=== PATIENT | female | born 2000 | race Caucasian/White ===

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

== ENCOUNTER 2018-03-13 14:45 | Emergency (ER) | payer MEDICAID ==
[~2018-03-13] VITALS: Ht 160 cm; Wt 72.4 kg
[~2018-03-13 14:45] MED LIST: FLAGYL500 MG PO; PHENERGAN25 M1 PO; VIBRAMYCIN 100100 MG PO
[2018-03-13 14:51] VITALS: Ht 160 cm; Wt 72.4 kg
[2018-03-13 15:26] LABS: BASOPHILS 0.1 % (0-2); EOSINOPHILS 0.7 % (0-7); HEMATOCRIT 40.6 % (36.0-48.0); HEMOGLOBIN 13.6 g/dL (12-16); IMMATURE GRANULOCYTES 0.1 % (0-5); LYMPHOCYTES 21.3 % (15-50); MCHC 33.5 g/dL (31.0-37.0); MCV 86.6 fL (80.0-100.0); MEAN PLATELET VOLUME 11.4 fL (7.4-10.4); MONOCYTES 7.9 % (2-11); NEUTROPHILS 69.9 % (40-80); PLATELET COUNT 174 10x3/uL (130-400); RBC 4.69 10x6/uL (4.00-5.40); RDW 13.5 % (11.5-14.5); WBC 9.7 10x3/uL (4.8-10.8)
[2018-03-13 15:45] LABS: APPEARANCE CLEAR (CLEAR); BILIRUBIN NEGATIVE (NEGATIVE); COLOR YELLOW (YELLOW); GLUCOSE NEGATIVE (NEGATIVE); KETONE NEGATIVE (NEGATIVE); NITRITE NEGATIVE (NEGATIVE); PROTEIN NEGATIVE (NEGATIVE); UROBILINOGEN NORMAL (NORMAL)
[2018-03-13 15:48] LABS: BACTERIA FEW /hpf (NONE SEEN); EPITHELIAL CELLS 0-5 /hpf (0-5); MUCUS <1+ /lpf (NONE SEEN); RED CELLS - URINE OCC /hpf (0-5); WHITE CELLS - URINE 0-5 /hpf (0-5)
[2018-03-13 15:51] LABS: ALBUMIN 3.7 g/dL (3.4-5.0); ALKALINE PHOSPHATASE 83 U/L (46-116); ALT (SGPT) 13 U/L (10-68); CALC OSMOLALITY 281 mosm/kg (275-300); CALCIUM 8.7 mg/dL (8.5-10.1); CARBON DIOXIDE 23.4 mmol/L (21.0-32.0); CHLORIDE - SERUM 107 mmol/L (98-107); CREATININE - SERUM 0.8 mg/dL (0.6-1.3); GLUCOSE 96 mg/dL (74-106); POTASSIUM - SERUM 3.3 mmol/L (3.5-5.1); PROTEIN - SERUM 7.3 g/dL (6.4-8.2); SODIUM 142 mmol/L (136-145); UREA NITROGEN 10 mg/dL (7-18); eGFR NON AFRICAN AMERICAN > 90 mL/min (90-120)
[2018-03-13 15:55] LABS: HCG SERUM POSITIVE (NEGATIVE)
[2018-03-13 20:11] VITALS: BP 122/78
== END 2018-03-13 20:05 | disposition home or self-care (01) ==
LOC: D.ER 14:45
PROVIDERS: Family Medicine
DX: O26.891 Other specified pregnancy related conditions, first trimester (principal); Z3A.01 Less than 8 weeks gestation of pregnancy; M25.551 Pain in right hip

== ENCOUNTER 2018-03-26 14:03 | Emergency (ER) | payer MEDICAID ==
[~2018-03-26] VITALS: Ht 160 cm; Wt 70.0 kg
[2018-03-26 15:00] VITALS: Ht 160 cm; Wt 70.0 kg
[2018-03-26 15:38] LABS: BASOPHILS 0.2 % (0-2); EOSINOPHILS 0.2 % (0-7); HEMATOCRIT 38.8 % (36.0-48.0); HEMOGLOBIN 13.4 g/dL (12-16); IMMATURE GRANULOCYTES 0.1 % (0-5); LYMPHOCYTES 19.5 % (15-50); MCH 29.1 pg (26.0-34.0); MCHC 34.5 g/dL (31.0-37.0); MCV 84.2 fL (80.0-100.0); MONOCYTES 5.2 % (2-11); NEUTROPHILS 74.8 % (40-80); PLATELET COUNT 189 10x3/uL (130-400); RBC 4.61 10x6/uL (4.00-5.40); RDW 13.3 % (11.5-14.5); WBC 8.2 10x3/uL (4.8-10.8)
[2018-03-26 15:58] LABS: ALBUMIN 3.9 g/dL (3.4-5.0); ALKALINE PHOSPHATASE 73 U/L (46-116); ALT (SGPT) 16 U/L (10-68); BILIRUBIN - TOTAL 0.67 mg/dL (0.2-1.3); CALC OSMOLALITY 280 mosm/kg (275-300); CALCIUM 8.9 mg/dL (8.5-10.1); CARBON DIOXIDE 25.7 mmol/L (21.0-32.0); CHLORIDE - SERUM 106 mmol/L (98-107); CREATININE - SERUM 0.8 mg/dL (0.6-1.3); GLUCOSE 87 mg/dL (74-106); POTASSIUM - SERUM 3.5 mmol/L (3.5-5.1); PROTEIN - SERUM 7.3 g/dL (6.4-8.2); SODIUM 142 mmol/L (136-145); UREA NITROGEN 10 mg/dL (7-18); eGFR NON AFRICAN AMERICAN > 90 mL/min (90-120)
[2018-03-26 16:14] LABS: APPEARANCE CLEAR (CLEAR); COLOR YELLOW (YELLOW)
[2018-03-26 16:15] LABS: BILIRUBIN NEGATIVE (NEGATIVE); GLUCOSE NEGATIVE (NEGATIVE); KETONE MODERATE mg/dL (NEGATIVE); NITRITE NEGATIVE (NEGATIVE); PROTEIN NEGATIVE (NEGATIVE); UROBILINOGEN NORMAL (NORMAL)
[2018-03-26 16:17] LABS: UDS - AMPHET NEGATIVE QUAL (NEGATIVE); UDS - BARB NEGATIVE QUAL (NEGATIVE); UDS - BENZO NEGATIVE QUAL (NEGATIVE); UDS - COCAINE NEGATIVE QUAL (NEGATIVE); UDS - OPIATE NEGATIVE QUAL (NEGATIVE); UDS - PCP NEGATIVE QUAL (NEGATIVE); UDS - THC POSITIVE QUAL (NEGATIVE)
[2018-03-26 16:19] LABS: HCG - QUANTITATIVE (MATERNAL) 77492 mIU/mL
[2018-03-26] MEDS ORDERED: ZOFRAN4 MG PO (19:43)
[2018-03-26 20:28] VITALS: BP 118/76
== END 2018-03-26 20:28 | disposition home or self-care (01) ==
LOC: D.ER 14:03 → D.EDHOLD 19:00 → D.ER 19:00
PROVIDERS: Family Medicine
DX: O21.9 Vomiting of pregnancy, unspecified (principal); Z3A.01 Less than 8 weeks gestation of pregnancy; E86.9 Volume depletion, unspecified

== ENCOUNTER 2018-08-01 19:08 | Outpatient (CLI) | payer MEDICAID ==
[2018-03-26 15:00] VITALS: BMI 27.3
[~2018-08-01 19:08] MED LIST changes: +ZOFRAN4 MG PO
== END 2018-08-01 22:18 | disposition home or self-care (01) ==
LOC: D.LDO 19:08
PROVIDERS: ATTEND Obstetrics & Gynecology
DX: O26.899 Other specified pregnancy related conditions, unspecified trimester (principal); Z3A.00 Weeks of gestation of pregnancy not specified

== ENCOUNTER → 2018-08-04 13:05 | Outpatient (CLI) | payer MEDICAID ==
[2018-03-26 15:00] VITALS: BMI 27.3
[~2018-08-04 13:05] MED LIST changes: +ALBUTEROL SULF8.5 GM INH; +BAYER CHEWABLE81 MG PO; +CYCLOBENZAPRINE10 MG PO; +PENICILLIN V P500 MG PO
[2018-08-04 14:06] LABS: APPEARANCE CLEAR (CLEAR); BILIRUBIN NEGATIVE (NEGATIVE); COLOR YELLOW (YELLOW); GLUCOSE NEGATIVE (NEGATIVE); KETONE NEGATIVE (NEGATIVE); NITRITE NEGATIVE (NEGATIVE); PROTEIN NEGATIVE (NEGATIVE); SPECIFIC GRAVITY 1.005 (1.005-1.020); UROBILINOGEN NORMAL (NORMAL)
[2018-08-04 14:08] LABS: UDS - AMPHET NEGATIVE QUAL (NEGATIVE); UDS - BARB NEGATIVE QUAL (NEGATIVE); UDS - BENZO NEGATIVE QUAL (NEGATIVE); UDS - COCAINE NEGATIVE QUAL (NEGATIVE); UDS - OPIATE NEGATIVE QUAL (NEGATIVE); UDS - PCP NEGATIVE QUAL (NEGATIVE); UDS - THC POSITIVE QUAL (NEGATIVE)
[2018-11-18 13:21] VITALS: BMI 26.6
== END | disposition home or self-care (01) ==
LOC: D.LDO 13:05
PROVIDERS: ATTEND Obstetrics & Gynecology
DX: O26.892 Other specified pregnancy related conditions, second trimester (principal); Z3A.25 25 weeks gestation of pregnancy

== ENCOUNTER 2018-08-26 23:04 | Outpatient (CLI) | payer SELFPAY ==
[2018-03-26 15:00] VITALS: BMI 27.3
[~2018-08-26 23:04] MED LIST changes: -ALBUTEROL SULF8.5 GM INH; -BAYER CHEWABLE81 MG PO; -CYCLOBENZAPRINE10 MG PO; -PENICILLIN V P500 MG PO
[2018-08-26 23:35] LABS: APPEARANCE CLEAR (CLEAR); BILIRUBIN NEGATIVE (NEGATIVE); COLOR YELLOW (YELLOW); GLUCOSE NEGATIVE (NEGATIVE); KETONE NEGATIVE (NEGATIVE); NITRITE NEGATIVE (NEGATIVE); PROTEIN NEGATIVE (NEGATIVE); UROBILINOGEN NORMAL (NORMAL)
== END 2018-08-27 01:15 ==
LOC: D.LDO 23:04 → D.LD 23:30 → D.LDO 08-27 00:04
PROVIDERS: ATTEND Obstetrics & Gynecology
DX: O26.899 Other specified pregnancy related conditions, unspecified trimester (principal); Z3A.00 Weeks of gestation of pregnancy not specified

== ENCOUNTER 2018-09-03 22:48 | Emergency (ER) | payer SELFPAY ==
[~2018-09-03] VITALS: Ht 160 cm; Wt 75.5 kg
[2018-09-03 23:04] VITALS: Ht 160 cm; Wt 75.5 kg
[2018-09-03] MEDS ORDERED: BAYER CHEWABLE81 MG PO (23:07)
[2018-09-04 00:57] VITALS: BP 113/66
== END 2018-09-04 00:57 | disposition home or self-care (01) ==
LOC: D.ER 22:48
DX: J02.0 Streptococcal pharyngitis (principal)

== ENCOUNTER 2018-09-24 21:08 | Outpatient (CLI) | payer MEDICAID ==
[2018-09-03 23:04] VITALS: BMI 29.5
[~2018-09-24 21:08] MED LIST changes: +BAYER CHEWABLE81 MG PO
[2018-11-18 13:21] VITALS: BMI 26.6
== END 2018-09-25 01:25 | disposition home or self-care (01) ==
LOC: D.LDO 21:08 → D.LD 23:08 → D.LDO 09-25 01:25
PROVIDERS: ATTEND Obstetrics & Gynecology
DX: O26.899 Other specified pregnancy related conditions, unspecified trimester (principal); Z3A.00 Weeks of gestation of pregnancy not specified

== ENCOUNTER → 2018-09-25 13:49 | Outpatient (CLI) | payer MEDICAID ==
[2018-09-03 23:04] VITALS: BMI 29.5
[~2018-09-25 13:49] MED LIST changes: +ALBUTEROL SULF8.5 GM INH; +CYCLOBENZAPRINE10 MG PO; +PENICILLIN V P500 MG PO
[2018-11-18 13:21] VITALS: BMI 26.6
== END | disposition home or self-care (01) ==
LOC: D.LDO 13:49
PROVIDERS: ATTEND Obstetrics & Gynecology
DX: O26.893 Other specified pregnancy related conditions, third trimester (principal); Z3A.32 32 weeks gestation of pregnancy

== ENCOUNTER → 2018-10-12 13:48 | Outpatient (CLI) | payer MEDICAID ==
[2018-09-03 23:04] VITALS: BMI 29.5
[~2018-10-12 13:48] MED LIST changes: -PENICILLIN V P500 MG PO
[2018-10-12 14:50] LABS: APPEARANCE CLEAR (CLEAR); BILIRUBIN NEGATIVE (NEGATIVE); COLOR YELLOW (YELLOW); GLUCOSE NEGATIVE (NEGATIVE); KETONE NEGATIVE (NEGATIVE); NITRITE NEGATIVE (NEGATIVE); PROTEIN NEGATIVE (NEGATIVE); SPECIFIC GRAVITY 1.015 (1.005-1.020); UROBILINOGEN NORMAL (NORMAL)
[2018-10-12 14:52] LABS: BACTERIA MANY /hpf (NONE SEEN); EPITHELIAL CELLS 0-5 /hpf (0-5); RED CELLS - URINE 0-5 /hpf (0-5); WHITE CELLS - URINE 0-5 /hpf (0-5)
[2018-11-08 18:31] VITALS: BMI 32.4
== END | disposition home or self-care (01) ==
LOC: D.LDO 13:48
PROVIDERS: ATTEND Obstetrics & Gynecology
DX: O26.893 Other specified pregnancy related conditions, third trimester (principal)

== ENCOUNTER 2018-10-21 12:11 | Outpatient (CLI) | payer MEDICAID ==
[2018-09-03 23:04] VITALS: BMI 29.5
[~2018-10-21 12:11] MED LIST changes: -ALBUTEROL SULF8.5 GM INH; -CYCLOBENZAPRINE10 MG PO
[2018-10-21] MEDS ORDERED: CYCLOBENZAPRINE10 MG PO (12:26)
[2018-10-21] MEDS ORDERED: ALBUTEROL SULF8.5 GM INH (12:27)
[2018-10-21 13:05] LABS: AMORPHOUS SEDIMENT <1+ /lpf (NONE SEEN); APPEARANCE CLEAR (CLEAR); BACTERIA MANY /hpf (NONE SEEN); BILIRUBIN NEGATIVE (NEGATIVE); COLOR YELLOW (YELLOW); GLUCOSE NEGATIVE (NEGATIVE); KETONE NEGATIVE (NEGATIVE); MUCUS >1+ /lpf (NONE SEEN); NITRITE NEGATIVE (NEGATIVE); PROTEIN 1+ mg/dL (NEGATIVE); RED CELLS - URINE 0-5 /hpf (0-5); SPECIFIC GRAVITY 1.015 (1.005-1.020); UROBILINOGEN NORMAL (NORMAL)
[2018-10-21 13:09] LABS: UDS - AMPHET NEGATIVE QUAL (NEGATIVE); UDS - BARB NEGATIVE QUAL (NEGATIVE); UDS - BENZO NEGATIVE QUAL (NEGATIVE); UDS - COCAINE NEGATIVE QUAL (NEGATIVE); UDS - OPIATE NEGATIVE QUAL (NEGATIVE); UDS - PCP NEGATIVE QUAL (NEGATIVE); UDS - THC POSITIVE QUAL (NEGATIVE)
[2018-10-25 12:09] LABS: UDSC - AMPHET Negative ng/mL (Cutoff=1000); UDSC - BARB Negative ng/mL (Cutoff=300); UDSC - BENZO Negative ng/mL (Cutoff=300); UDSC - COC Negative ng/mL (Cutoff=300); UDSC - METH Negative ng/mL (Cutoff=300); UDSC - OPIATES Negative ng/mL (Cutoff=300); UDSC - PCP Negative ng/mL (Cutoff=25); UDSC - PROPOXY Negative ng/mL (Cutoff=300); UDSC - THC QNS (())
[2018-11-08 18:31] VITALS: BMI 32.4
== END 2018-10-21 17:00 ==
LOC: D.LDO 12:11
PROVIDERS: ATTEND Obstetrics & Gynecology
DX: O47.9 False labor, unspecified (principal); Z3A.00 Weeks of gestation of pregnancy not specified

== ENCOUNTER 2018-11-06 22:19 | Outpatient (CLI) | payer MEDICAID ==
[2018-09-03 23:04] VITALS: BMI 29.5
[~2018-11-06 22:19] MED LIST changes: +ALBUTEROL SULF8.5 GM INH; +CYCLOBENZAPRINE10 MG PO
[2018-11-06 23:00] LABS: APPEARANCE CLEAR (CLEAR); BILIRUBIN NEGATIVE (NEGATIVE); COLOR YELLOW (YELLOW); GLUCOSE NEGATIVE (NEGATIVE); KETONE NEGATIVE (NEGATIVE); NITRITE NEGATIVE (NEGATIVE); PROTEIN NEGATIVE (NEGATIVE); SPECIFIC GRAVITY 1.015 (1.005-1.020); UROBILINOGEN NORMAL (NORMAL)
[2018-11-06 23:08] LABS: UDS - AMPHET NEGATIVE QUAL (NEGATIVE); UDS - BARB NEGATIVE QUAL (NEGATIVE); UDS - BENZO NEGATIVE QUAL (NEGATIVE); UDS - COCAINE NEGATIVE QUAL (NEGATIVE); UDS - OPIATE NEGATIVE QUAL (NEGATIVE); UDS - PCP NEGATIVE QUAL (NEGATIVE); UDS - THC POSITIVE QUAL (NEGATIVE)
[2018-11-08 18:31] VITALS: BMI 32.4
[2018-11-09 14:09] LABS: UDSC - AMPHET Negative ng/mL (Cutoff=1000); UDSC - BARB Negative ng/mL (Cutoff=300); UDSC - BENZO Negative ng/mL (Cutoff=300); UDSC - COC Negative ng/mL (Cutoff=300); UDSC - METH Negative ng/mL (Cutoff=300); UDSC - OPIATES Negative ng/mL (Cutoff=300); UDSC - PCP Negative ng/mL (Cutoff=25); UDSC - PROPOXY Negative ng/mL (Cutoff=300); UDSC - THC Positive (Cutoff=50)
== END 2018-11-07 00:33 | disposition home or self-care (01) ==
LOC: D.LDO 22:19 → D.LD 23:51 → D.LDO 11-07 00:33
PROVIDERS: ATTEND Obstetrics & Gynecology
DX: O36.8130 Decreased fetal movements, third trimester, not applicable or unspecified (principal); Z3A.38 38 weeks gestation of pregnancy

== ENCOUNTER 2018-11-08 14:30 | Inpatient (IN) | payer MEDICAID ==
[~2018-11-08] VITALS: Ht 160 cm; Wt 83.0 kg
[2018-11-08 16:33] LABS: APPEARANCE CLEAR (CLEAR); BILIRUBIN NEGATIVE (NEGATIVE); COLOR YELLOW (YELLOW); GLUCOSE NEGATIVE (NEGATIVE); KETONE NEGATIVE (NEGATIVE); NITRITE NEGATIVE (NEGATIVE); PROTEIN NEGATIVE (NEGATIVE); SPECIFIC GRAVITY 1.005 (1.005-1.020); UROBILINOGEN NORMAL (NORMAL)
[2018-11-08 18:31] VITALS: BP 118/74; Ht 160 cm; Wt 83.0 kg
[2018-11-08 20:21] LABS: HEMATOCRIT 39.6 % (36.0-48.0); HEMOGLOBIN 12.9 g/dL (12-16); MCH 27.3 pg (26.0-34.0); MCHC 32.6 g/dL (31.0-37.0); MCV 83.9 fL (80.0-100.0); MEAN PLATELET VOLUME 12.5 fL (7.4-10.4); RBC 4.72 10x6/uL (4.00-5.40); RDW 13.6 % (11.5-14.5); WBC 13.5 10x3/uL (4.8-10.8)
[2018-11-08 22:33] LABS: UDS - AMPHET NEGATIVE QUAL (NEGATIVE); UDS - BARB NEGATIVE QUAL (NEGATIVE); UDS - BENZO NEGATIVE QUAL (NEGATIVE); UDS - COCAINE NEGATIVE QUAL (NEGATIVE); UDS - OPIATE NEGATIVE QUAL (NEGATIVE); UDS - PCP NEGATIVE QUAL (NEGATIVE); UDS - THC POSITIVE QUAL (NEGATIVE)
[2018-11-09 01:37] VITALS: BP 115/66
--- NOTE | 2018-11-09 01:37 | NUR ---
AMBULATORY TO ROOM 1257 FOR CONTINUED PP CARE. STEADY GAIT NOTED. VSS. ORIENTED TO ROOM, CALL LIGHT USE, BATHROOM. DENIES NEEDS AT THIS TIME. BED IN LOW POSITION WITH UPPER SIDE RAILS RAISED X2. CALL LIGHT AND PHONE WITHIN REACH. WILL CONTINUE TO MONITOR. NBN NOTIFIED OF MOM MOVING TO NEW ROOM.
--- NOTE | 2018-11-09 03:23 | NUR ---
RN TO ROOM FOR ROUNDS. PT NOT IN ROOM. LEONARDA BARROS RN REPORTS THAT PT AND SIGNIFICANT OTHER WALKED PAST NBN WINDOW APPROXIMATELY 10-15 MINUTES AGO. INFANT IN NBN AT THIS TIME.
--- NOTE | 2018-11-09 03:35 | NUR ---
PT BACK IN ROOM, CALLS VIA CALL LIGHT. REQUESTS TO SHOWER, TOWELS AND CLEAN GOWN PROVIDED. REINFORCED WITH PT IMPORTANCE OF REMAINING ON UNIT WHEN AMBULATING D/T SAFETY FOR HER AND IN THE EVENT SHE NEEDED TO BE GOTTEN FOR INFANT NEEDS, VERBALIZES UNDERSTANDING. INSTRUCTED HUMAN SERVICES SUPERVISOR LIGHT USE IN BR, VERBALIZES UNDERSTANDING. ICE WATER PROVIDED. WILL CONTINUE TO MONITOR.
--- NOTE | 2018-11-09 04:03 | NUR ---
OUT OF SHOWER. WATCHING TV IN SEMI FOWLERS POSITION, CONVERSING WITH SIGNIFICANT OTHER, DENIES NEEDS AND PAIN. RESTING QUIETLY IN OPEN CRIB AT BEDSIDE. BED IN LOW POSITION WITH UPPER SIDE RIALS RAISED X2. CALL LIGHT AND PHONE WITHIN REACH.
[2018-11-09 07:21] LABS: BASOPHILS 0.1 % (0-2); EOSINOPHILS 0.1 % (0-7); HEMATOCRIT 38.5 % (36.0-48.0); HEMOGLOBIN 12.4 g/dL (12-16); IMMATURE GRANULOCYTES 0.3 % (0-5); LYMPHOCYTES 11.2 % (15-50); MCH 27.1 pg (26.0-34.0); MCHC 32.2 g/dL (31.0-37.0); MCV 84.2 fL (80.0-100.0); MEAN PLATELET VOLUME 12.4 fL (7.4-10.4); MONOCYTES 7.7 % (2-11); NEUTROPHILS 80.6 % (40-80); PLATELET COUNT 188 10x3/uL (130-400); RBC 4.57 10x6/uL (4.00-5.40); RDW 13.5 % (11.5-14.5)
[2018-11-09 07:25] LABS: WBC 17.4 10x3/uL (4.8-10.8)
[2018-11-09 07:39] VITALS: BP 126/74
--- NOTE | 2018-11-09 07:49 | NUR ---
RESTING IN BED HOLDING INFANT. ASSESSMENT DONE. STATES NEEDS TO GET UP TO VOID. CO PAIN LOWER ABD AND RECTAL AREA- STATES FEELS LIKE PRESSURE. FUNDUS UU/FIRM. SMALL LOCHIA NOTED ON PAD- NO CLOTS. UP TO BATHROOM TO VOID.
--- NOTE | 2018-11-09 08:02 | NUR ---
C/O ABD CRAMPING 07/23. MOTRIN GIVEN PER ORDER AND PT REQUEST. DENIES ADDITIONAL NEEDS. EATING BREAKFAST TRAY. INFANT RESTING IN OPEN CRIB AT BEDSIDE. BED IN LOW POSITION WITH UPPER SIDE RIALS RAISED X2. CALL LIGHT AND PHONE WITHIN REACH.
--- NOTE | 2018-11-09 10:00 | NUR ---
THIS RN TO ROOM FOR PT CHECK. PT LYING IN BED ON LEFT SIDE, HOLDING NEXT TO HER. PT IS AAOx3. ICE WATER PROVIDED PER PT REQUEST, AND PLACED IN [place] PER REQUEST PT STATES SHE WANTS TO NAP. SRUx2, CL IN REACH. LIGHTS IN ROOM DIM FOR REST.
--- NOTE | 2018-11-09 11:25 | NUR ---
dr tse in room taking with pt at this time.
--- NOTE | 2018-11-09 11:32 | NUR ---
states that pain is better. rates 4 on scale of 0-10. family members at bedsdie.
[2018-11-09 15:00] VITALS: BP 117/70
--- NOTE | 2018-11-09 15:00 | NUR ---
VS DONE. ICE WATEER GIVEN. DENIES NEEDS. STATES UP AND ABOUT IN ROOM. PT STATES SHE HAS HAD A FEW X2 SMALL CLOTS TODAY. FUNDUS FIRM/U2 AT THIS TIME. SCANT TO SMALL LOCHIA BNOTED ON PAD.
[2018-11-09 15:32] LABS: BASOPHILS 0.2 % (0-2); EOSINOPHILS 0.3 % (0-7); HEMATOCRIT 35.9 % (36.0-48.0); HEMOGLOBIN 11.8 g/dL (12-16); IMMATURE GRANULOCYTES 0.5 % (0-5); LYMPHOCYTES 17.3 % (15-50); MCH 27.7 pg (26.0-34.0); MCHC 32.9 g/dL (31.0-37.0); MCV 84.3 fL (80.0-100.0); MEAN PLATELET VOLUME 12.2 fL (7.4-10.4); MONOCYTES 5.8 % (2-11); NEUTROPHILS 75.9 % (40-80); PLATELET COUNT 190 10x3/uL (130-400); RBC 4.26 10x6/uL (4.00-5.40); RDW 13.6 % (11.5-14.5)
--- NOTE | 2018-11-09 17:30 | NUR ---
CO CRAMPING LOWER ABD- RATES PAIN A 7 ON SCALE OF 0-10. REQUESTING MOTRIN. MED GIVEN.
--- NOTE | 2018-11-09 19:10 | NUR ---
REPORT TO PM SHIFT.
--- NOTE | 2018-11-09 19:25 | NUR ---
DHS TO ROOM TO TALK WITH PT.
--- NOTE | 2018-11-09 20:00 | NUR ---
THIS RN TO BEDSIDE FOR SHIFT ASSESSMENT. SEE FLOWSHEET FOR DOCUMENTATION. PT CURRENTLY UP AMBULATING ROOM TO BR. PAIN AND NEEDS ASSESSED. PT REPORTS ABD CRAMPING PAIN2 /10. PT HAS BEEN PREVIOUSLY BEEN MEDICATED. NO FURTHER PAIN INTERVENTIONS NEEDED AT THIS TIME. PT REQUESTING SOMETHING TO EAT. SANDWICH TRAY, PUDDING AND ORANGE JUICE SERVED PER PT REQUEST. NO FURTHER NEEDS AT THIS TIME.
[2018-11-09 20:39] VITALS: BP 114/57
--- NOTE | 2018-11-09 22:29 | NUR ---
AT PRESENT. DENIES ANY NEEDS. CHEERFUL.
--- NOTE | 2018-11-09 22:32 | NUR ---
ROUNDS MADE. PT DENIES PAIN OR NEEDS AT THIS TIME. CURRENTLY LYING IN BED HOLDING INFANT WATCHING TV AND USING CELL PHOEN.
--- NOTE | 2018-11-10 00:20 | NUR ---
PT. UP AND ABOUT IN ROOM. IN OPEN CRIB. REQUESTING COFFEE. INFORMED PT. THAT THIS NURSE WOULD MAKE FRESH BEFORE BRINGING TO HER. STATES UNDERSTANDING.
--- NOTE | 2018-11-10 00:37 | NUR ---
COFFEE TAKEN TO PT. CURRENTLY . DENIES ANY FURTHER NEEDS. LIGHTS IN ROOM DIMMED WITH TV PLAYING.
--- NOTE | 2018-11-10 02:18 | NUR ---
PT. HOLDING INFANT AND TALKING ON PHONE. DENIES ANY NEEDS.
--- NOTE | 2018-11-10 02:50 | NUR ---
PT. CALLED TO REPORT HER SALINE LOCK SITE WAS PAINFUL. SITE IN RT UPPER ARM VISUALIZED AND WITH SOFT TOUCH , PT. C/O PAIN AT SITE. IV SALINE LOCK DISCONTINUED. PT. HOLDING INFANT AND CRYING. PT. QUESTIONED SHOWERING. SUGGESTED SHE WAIT 20-30 MINUTES TO ALLOW IV SITE TO CLOT WELL OR THE WARM WATER COULD CAUSE AREA TO START BLEEDING AGAIN. PT. STATES UNDERSTANDING AND PLANS TO BREASTFEED FIRST.
--- NOTE | 2018-11-10 03:55 | NUR ---
INFANT INTO ROOM PER NURSERY NURSE. PT. LYING ON RT SIDE.
--- NOTE | 2018-11-10 05:01 | NUR ---
PT. REQUESTING PAIN MEDICATION FOR ABD. DISCOMFORT. HOLDING AT PRESENT.
--- NOTE | 2018-11-10 05:07 | NUR ---
MOTRIN GIVEN ORDERED FOR PAIN. RATES PAIN AN 8 OF 10 AND STATES CAME ON QUICKLY. UNSURE IF ABD. CRAMPING OF GAS DISCOMFORT. ENCOURAGED PT. TO WALK AROUND IN THE ROOM AFTER TO POSSIBLE PASS GAS IF POSSIBLE. DENIES BOWEL MOVEMENT SINCE ADMIT. MALE IN ROOM WITH PT. WATCHING TV.
--- NOTE | 2018-11-10 06:01 | NUR ---
PT. LYING ON BACK WITH HOB AT 30 DEGREES WITH EYES CLOSED. RESPIRATIONS UNLABORED. MALE ON SOFA.
--- NOTE | 2018-11-10 07:35 | NUR ---
BREAKFAST TRAY PROVIDED TO PT, PT DROWSY, DENIES NEEDS OR CONCERNS AT THIS TIME, WILL MONITOR.
[2018-11-10 08:10] LABS: RAPID PLASMA REAGIN Non Reactive (Non Reactive)
--- NOTE | 2018-11-10 08:10 | NUR ---
ROUNDS COMPLETED, ICE WATER PROVIDED UPON REQUEST, DENIES NEEDS OR CONCERNS, SITTING UP IN BED, NAD NOTED. CONTINUE TO MONITOR.
[2018-11-10 08:45] VITALS: BP 113/74
--- NOTE | 2018-11-10 09:10 | NUR ---
PT RESTING WITH EYES CLOSED ON PT ROUNDS, WILL MONITOR.
--- NOTE | 2018-11-10 10:15 | NUR ---
DR VICK MAKING PT ROUNDS, PT DENIES NEEDS OR CONCERNS AT THIS TIME. WILL MONITOR.
--- NOTE | 2018-11-10 11:00 | NUR ---
discharge instructions reviewed with pt, handouts provided for referral after discharge, questions answered, provided immunization record update for MMR vaccine administered per pt request. no other needs voiced at this time, states understanding of all information provided.
--- NOTE | 2018-11-10 11:20 | NUR ---
rounds made, pt oob to br to void and shower. nad noted. will monitor.
--- NOTE | 2018-11-10 12:28 | NUR ---
regular diet tray to pt, tolerating po well, nad noted, denies needs or concerns on rounds. call light in easy reach.
--- NOTE | 2018-11-10 13:15 | NUR ---
pt discharged to home with all personal belongings, secured in car seat per pt, to private auto with mother. nad noted, stable condition.
[2018-11-13 09:09] LABS: UDSC - AMPHET Negative ng/mL (Cutoff=1000); UDSC - BARB Negative ng/mL (Cutoff=300); UDSC - BENZO Negative ng/mL (Cutoff=300); UDSC - COC Negative ng/mL (Cutoff=300); UDSC - METH Negative ng/mL (Cutoff=300); UDSC - OPIATES Negative ng/mL (Cutoff=300); UDSC - PCP Negative ng/mL (Cutoff=25); UDSC - PROPOXY Negative ng/mL (Cutoff=300); UDSC - THC Positive (Cutoff=50)
== END 2018-11-10 13:15 | disposition home or self-care (01) | DRG 807 ==
LOC: D.LDO 14:30 → D.LD 19:24 → D.LDO 20:16 → D.LD 11-09 01:37
PROVIDERS: ADMIT Student in an Organized Health Care Education/Training Program; ATTEND Student in an Organized Health Care Education/Training Program
PROC: 10E0XZZ Delivery of Products of Conception, External Approach (ICD-10-PCS; principal; 2018-11-08)
PROC: 10907ZC Drainage of Amniotic Fluid, Therapeutic from Products of Conception, Via Natural or Artificial Opening (ICD-10-PCS; 2018-11-08)
DX: O99.284 Endocrine, nutritional and metabolic diseases complicating childbirth (principal); Z37.0 Single live birth; E07.89 Other specified disorders of thyroid; O77.0 Labor and delivery complicated by meconium in amniotic fluid; Z3A.38 38 weeks gestation of pregnancy

== ENCOUNTER 2018-11-18 13:02 | Emergency (ER) | payer MEDICAID ==
[~2018-11-18] VITALS: Ht 160 cm; Wt 68.2 kg
[2018-11-18 13:21] VITALS: BP 135/74; Ht 160 cm; Wt 68.2 kg
[2018-11-18] MEDS ORDERED: PENICILLIN V P500 MG PO (15:15)
== END 2018-11-18 15:39 | disposition home or self-care (01) ==
LOC: D.ER 13:02
DX: O90.89 Other complications of the puerperium, not elsewhere classified (principal); K04.7 Periapical abscess without sinus; O99.335 Smoking (tobacco) complicating the puerperium; F17.210 Nicotine dependence, cigarettes, uncomplicated

== ENCOUNTER 2019-02-02 12:10 | Emergency (ER) | payer MEDICAID ==
[~2019-02-02] VITALS: Ht 160 cm; Wt 77.3 kg
[~2019-02-02 12:10] MED LIST changes: +PENICILLIN V P500 MG PO
[2019-02-02 12:32] VITALS: Ht 160 cm; Wt 77.3 kg
[2019-02-02 12:56] LABS: BASOPHILS 0.2 % (0-2); HEMATOCRIT 40.6 % (36.0-48.0); HEMOGLOBIN 13.3 g/dL (12-16); IMMATURE GRANULOCYTES 0.1 % (0-5); MCHC 32.8 g/dL (31.0-37.0); MCV 85.5 fL (80.0-100.0); MEAN PLATELET VOLUME 10.4 fL (7.4-10.4); MONOCYTES 6.9 % (2-11); NEUTROPHILS 65.8 % (40-80); RBC 4.75 10x6/uL (4.00-5.40); RDW 15.4 % (11.5-14.5); WBC 8.8 10x3/uL (4.8-10.8)
[2019-02-02 12:57] LABS: PLATELET COUNT 287 10x3/uL (130-400)
[2019-02-02 12:58] LABS: APPEARANCE CLOUDY (CLEAR); BILIRUBIN NEGATIVE (NEGATIVE); COLOR YELLOW (YELLOW); GLUCOSE NEGATIVE (NEGATIVE); KETONE NEGATIVE (NEGATIVE); NITRITE NEGATIVE (NEGATIVE); PROTEIN TRACE mg/dL (NEGATIVE); UROBILINOGEN NORMAL (NORMAL)
[2019-02-02 13:01] LABS: BACTERIA FEW /hpf (NEGATIVE); EPITHELIAL CELLS 0-5 /hpf (0-5); RED CELLS - URINE >50 /hpf (0-5); WHITE CELLS - URINE 0-5 /hpf (NEGATIVE)
[2019-02-02 13:07] LABS: CALC OSMOLALITY 282 mosm/kg (275-300); CALCIUM 8.8 mg/dL (8.5-10.1); CARBON DIOXIDE 24.9 mmol/L (21.0-32.0); CHLORIDE - SERUM 107 mmol/L (98-107); CREATININE - SERUM 0.7 mg/dL (0.6-1.3); GLUCOSE 104 mg/dL (74-106); SODIUM 142 mmol/L (136-145); UREA NITROGEN 12 mg/dL (7-18); eGFR NON AFRICAN AMERICAN > 90 mL/min (90-120)
[2019-02-02 13:13] LABS: HCG SERUM NEGATIVE (NEGATIVE)
[2019-02-02 13:14] LABS: ALBUMIN 3.5 g/dL (3.4-5.0); ALKALINE PHOSPHATASE 96 U/L (46-116); ALT (SGPT) 22 U/L (10-68); PROTEIN - SERUM 7.2 g/dL (6.4-8.2)
[2019-02-02 14:37] VITALS: BP 114/75
== END 2019-02-02 14:37 | disposition home or self-care (01) ==
LOC: D.ER 12:10
PROVIDERS: Family Medicine
DX: N93.9 Abnormal uterine and vaginal bleeding, unspecified (principal); E06.3 Autoimmune thyroiditis